=== PATIENT | female | born 1940 | race Hispanic/Latino ===

== ENCOUNTER → 2018-05-31 | Outpatient (CLI) | payer MEDICARE | END | disposition home or self-care (01) | LOC: SHCH 15:00 | PROVIDERS: ATTEND Internal Medicine Cardiovascular Disease | DX: I65.23 Occlusion and stenosis of bilateral carotid arteries (principal) | CPT/HCPCS: 93880 ==

== ENCOUNTER 2018-06-19 08:18 | Day surgery (SDC) | payer MEDICARE ==
[2018-06-15 12:51] VITALS: BP 180/83
[2018-06-15 12:55] LABS: BASOPHILS % (AUTO) 2.5 % (0.0-5.0); EOSINOPHILS % (AUTO) 3.4 % (0.0-8.0); HEMATOCRIT 37.3 % (36-48); MEAN CORPUSCULAR HEMOGLOBIN 33.2 pg (27.0-33.0); MEAN CORPUSCULAR HGB CONC 33.6 g/dL (32.0-36.0); MEAN CORPUSCULAR VOLUME 98.6 fL (79-99); MONOCYTES % (AUTO) 4.9 % (3.0-13.0); NEUTROPHILS % (AUTO) 82.2 % (40.0-77.0); PLATELET COUNT (AUTO) 208 K/uL (130-400); RED BLOOD CELL COUNT(AUTO) 3.78 MIL/uL (4.00-5.50); RED CELL DISTRIBUTION WIDTH 13.5 % (11.0-15.5); WHITE BLOOD COUNT (AUTO) 8.9 K/uL (4.8-10.8)
[2018-06-15 13:04] LABS: CREATININE 0.8 mg/dL (0.5-1.5); POTASSIUM 4.5 mmol/L (3.5-5.1)
[2018-06-15 13:06] LABS: INR 0.95 (0.85-1.15); PARTIAL THROMBOPLASTIN TIME 25.7 SEC (26.3-35.5)
[~2018-06-19] VITALS: Ht 152.4 cm; Wt 48.1 kg
[2018-06-19] VITALS (19 sets, daily range): BP systolic 126–176; BP diastolic 49–82
[~2018-06-19 08:18] MED LIST: ASPI-1181 PO; ATOR10 PO; CARV12.511 PO; CHOL200026 PO; FERR-82 PO; FOLI1TAB85 PO; FURO-152 PO; GABA-529 PO; LOSA50TA64 PO; MECL12.585 PO; MONT10TA24 PO; OMEP20TA25 PO; PROM25TA7 PO
--- NOTE | 2018-06-19 09:11 | NUR ---
ASSESS MULTIPLE BRUISES NOTED TO ENTIRE BODY.
[2018-06-19] MEDS ORDERED: LIDOCAINE HCL 2% VISCOUS 15 ML UDCUP ONE (09:27)
[2018-06-19] MEDS ORDERED: SODIUM CHLORIDE 0.9% 1000ML 1,000 ML IV ONE (09:27)
[2018-06-19] MEDS ORDERED: FENTANYL CITRATE PF 50 MCG/1 ML 2ML VIAL ONE (12:40)
[2018-06-19] MEDS ORDERED: MIDAZOLAM HCL 1 MG/ML 2ML VIAL ONE ×2 (12:40→12:54)
--- NOTE | 2018-06-19 12:45 | NUR ---
procedure TJ PROCEDURE BEING DONE AT BEDSIDE. TIME OUT DONE AT 1245 WITH Gordon ROSS RN, DR. Morenita DAMON, Kay NORWOOD FOOD BROKER AT BEDSIDE. AFTER PATIENT MEDICATED WITH TOTAL OF VERSED 6MG AND FENTANYL 75 MCG IV TOTAL PATIENT WAS READY FOR PROCEDURE. TJ SCOPE INSERTED AT 1258 AND AT 1300 BUBBLE STUDY DONE. PROCEDURE COMPLETED AT 1304, LIDOCAINE VISCOUS WAS GIVEN TO PATIENT BY Kay NORWOOD [employer] BROKER AT 1243 . OVERALL , PATIENT TOLERATED PROCEDURE WELL, NO ADVERSE REACTIONS NOTED WITH ANY OF MEDICATIONS GIVEN. DR. Morenita DAMON SPOKE TO PATIENTS DAUGTHER TO INFORM HER OR PROCEDURE RESULTS.
== END 2018-06-19 14:20 | disposition home or self-care (01) ==
LOC: DAH 08:18
PROVIDERS: ATTEND Internal Medicine Cardiovascular Disease
DX: I34.0 Nonrheumatic mitral (valve) insufficiency (principal); Z79.01 Long term (current) use of anticoagulants; K21.9 Gastro-esophageal reflux disease without esophagitis; I10 Essential (primary) hypertension; K74.60 Unspecified cirrhosis of liver; E78.5 Hyperlipidemia, unspecified; Z79.899 Other long term (current) drug therapy; Z98.890 Other specified postprocedural states
CPT/HCPCS: 36415; 80048; 82948 ×2; 85025; 85610; 85730; 93313; A4606; J2250 ×2; J3010; J7030; 99156

== ENCOUNTER 2018-06-19 16:20 | Emergency (ER) | payer MEDICARE ==
[2018-06-19] MEDS ORDERED: LIDOCAINE HCL 2% VISCOUS 15 ML UDCUP ONE (17:30)
[2018-06-19] MEDS ORDERED: ONDANSETRON HCL 4 MG/2 ML VIAL ONE (17:30)
[2018-06-19] MEDS ORDERED: MAG HYDROX/AL HYDROX/SIMETH ES 30 ML SUSP UDCUP ONE (17:30)
[2018-06-19 17:45] LABS: BASOPHILS % (AUTO) 0.2 % (0.0-5.0); EOSINOPHILS % (AUTO) 2.7 % (0.0-8.0); HEMATOCRIT 33.8 % (36-48); LYMPHOCYTES % (AUTO) 9.7 % (21.0-51.0); MEAN CORPUSCULAR HGB CONC 32.6 g/dL (32.0-36.0); MEAN CORPUSCULAR VOLUME 98.4 fL (79-99); NEUTROPHILS % (AUTO) 82.4 % (40.0-77.0); PLATELET COUNT (AUTO) 151 K/uL (130-400); RED BLOOD CELL COUNT(AUTO) 3.43 MIL/uL (4.00-5.50); RED CELL DISTRIBUTION WIDTH 13.3 % (11.0-15.5); WHITE BLOOD COUNT (AUTO) 12.4 K/uL (4.8-10.8)
[2018-06-19 18:00] LABS: CREATININE 0.8 mg/dL (0.5-1.5); POTASSIUM 3.9 mmol/L (3.5-5.1)
[2018-06-19] MEDS ORDERED: HYDROMORPHONE 1 MG/1 ML AMP ONE (18:29)
== END 2018-06-19 20:21 | disposition home or self-care (01) ==
LOC: EDH 16:20
DX: R10.13 Epigastric pain (principal); I11.0 Hypertensive heart disease with heart failure; I50.9 Heart failure, unspecified; E11.9 Type 2 diabetes mellitus without complications; E78.5 Hyperlipidemia, unspecified; K21.9 Gastro-esophageal reflux disease without esophagitis; F41.9 Anxiety disorder, unspecified
CPT/HCPCS: 36415; 71250; 80048; 84484; 85025; 93005; 96374; 96375; 99284; J1170; J2405